=== PATIENT | female | born 1960 | race Caucasian/White ===

== ENCOUNTER → 2017-04-11 | Outpatient (CLI) | payer BC ==
--- NOTE | 2017-04-11 17:28 | CARD ---
APPROVED REPORT EXAM: Two-dimensional and M-mode echocardiogram with Doppler and color Doppler. Other Information Quality : Fair INDICATION Chest Pain 2D DIMENSIONS RVDd3.7 (2.9-3.5cm)Left Atrium(2D)4.1 (1.6-4.0cm) IVSd1.2 (0.7-1.1cm)Aortic Root(2D)2.5 (2.0-3.7cm) LVDd4.1 (3.9-5.9cm)LVOT Diameter2.0 (1.8-2.4cm) PWd1.0 (0.7-1.1cm)LVDs2.8 (2.5-4.0cm) FS (%) 31.4 %SV45.3 ml LVEF(%)60.0 (>50%) Aortic Valve AoV Peak Damon.139.3cm/sAoV VTI30.6cm AO Peak GR.7.8mmHgLVOT Peak Damon.118.6cm/s LVOT VTI 29.79cmAO Mean GR.5mmHg ERASTO (VMAX)2.13ed1ERN (VTI)3.11cm2 Mitral Valve MV E Yuqgvvjf66.9cm/sMV DECEL QAPT455gv MV A Teexdbcv21.2cm/sMV QED43ex E/A Ratio1.1MVA (PHT)3.16cm2 TDI E/Lateral E'6.6E/Medial E'13.1 Tricuspid Valve TR P. Pchhfzig614vt/sRAP GGBIHWLK4apQx TR Peak Gr.06uqTxHHKM38xiGl Pulmonary Vein S1 Cozfible94.0cm/sD2 Avwhebfe29.0cm/s LEFT VENTRICLE The left ventricle is normal size. There is normal left ventricular wall thickness. The left ventricu lar systolic function is normal and the ejection fraction is within normal range. The Ejection Fracti on is 60%. There is normal LV segmental wall motion. RIGHT VENTRICLE The right ventricle is normal size. The right ventricular systolic function is normal. ATRIA The left atrium is mildly dilated. The right atrium size is normal. The interatrial septum is intact with no evidence for an atrial septal defect or patent foramen ovale as noted on 2-D or Doppler imagi ng. AORTIC VALVE The aortic valve is normal in structure and function. Doppler and Color Flow revealed no significant aortic regurgitation. There is no significant aortic valvular stenosis. MITRAL VALVE The mitral valve is normal in structure There is no evidence of mitral valve prolapse. There is no mi tral valve stenosis. Doppler and Color-flow revealed trace mitral regurgitation. TRICUSPID VALVE The tricuspid valve is normal in structure Doppler and Color Flow revealed trace tricuspid regurgitat ion. There is mild pulmonary hypertension. The PA pressure was estimated at 33 mmHg. There is no tric uspid valve stenosis. PULMONIC VALVE The pulmonary valve is normal in structure Doppler and Color Flow revealed trace pulmonic valvular re gurgitation. There is no pulmonic valvular stenosis. GREAT VESSELS The aortic root is normal in size. The ascending aorta is normal in size. The IVC is normal in size a nd collapses >50% with inspiration. PERICARDIAL EFFUSION There is no evidence of significant pericardial effusion. Critical Notification Critical Value: No <Conclusion> The left ventricular systolic function is normal and the ejection fraction is within normal range. The Ejection Fraction is 60%. The left atrium is mildly dilated. The right atrium size is normal. The aortic valve is normal in structure and function. Doppler and Color-flow revealed trace mitral regurgitation. Doppler and Color Flow revealed trace tricuspid regurgitation. There is mild pulmonary hypertension. The PA pressure was estimated at 33 mmHg. Doppler and Color Flow revealed trace pulmonic valvular regurgitation. There is no evidence of significant pericardial effusion.
== END | disposition home or self-care (01) ==
LOC: ECHO 08:33
PROVIDERS: ATTEND Internal Medicine Cardiovascular Disease
DX: Z01.810 Encounter for preprocedural cardiovascular examination (principal); R07.89 Other chest pain
CPT/HCPCS: 93306

== ENCOUNTER → 2017-05-29 | Day surgery (SDC) | payer BC ==
[~2017-05-29] MED LIST: ATOR20TA58 PO; CHOL10003 PO; CLOP75TA PO; ESCITALOPRAM OX20 MG PO; HYDR12.58 PO; IV RINGERS,LACTATED 1000ML 1,000 ML IV SCH; LIDOCAINE 2% PF Vial for OR 5 ML VIAL. ONE; LOSA100T6 PO; METF500T4 PO; MONT10TA9 PO; PROAIR HFA8.5 GM INH; PROPOFOL 20 ML IV ONE; PROPOFOL 40 ML IV ONE; TIOT4MIS3 IH
--- NOTE | 2017-05-29 12:49 | PDOC1 ---
History and Physical Date of Admission Date of Admission DATE: 05/29/17 TIME: 12:40 Source Source: Chart review, Patient History of Present Illness History of Present Illness 56 y/o female with epigastric and chest pain. Chest pain radiates to interscapular area. No prior EGD. H/o early satiety, but no typical heartburn or dysphagia. Remote trial of PPI felt ineffective. No PUD, liver or pancreatic history. Prior sono in February revealed gallstones. Former smoker. No current meaningful alcohol use. Occasional loose stools w/o ongoing diarrhea or constipation. No overt bleeding, wt. loss, anorexia, nausea or vomiting. No prior colon cancer screening. Half-brother with CRC and grandmother with pancreatic cancer, otherwise negative GIFH. Past Medical History Cardiovascular: HTN Pulmonary: Asthma CENTRAL NERVOUS SYSTEM: CVA Psych: Depression Musculoskeletal: Osteoarthritis Endocrine: Diabetes Past Surgical History Past Surgical History: Tonsillectomy, Hysterectomy Family History Family History: Coronary Artery Disease, Diabetes, Hypertension, Other ( "bleeding disorder"/mother) Social History Smoke: Quit ALCOHOL: none Drugs: None Current Medications Current Medications Current Medications Ringer's Solution 1,000 ml @ 50 mls/hr Q20H IV Last administered on t 12:26; Start 05/29/17 at 11:16; Stop 05/29/17 at 23:15 Active Scripts Active Reported Proair Hfa Inhaler (Albuterol Sulfate) 8.5 Gm Hfa.aer.ad 2 Puff INH PRN Q6HRS PRN Vitamin D3 (Cholecalciferol (Vitamin D3)) 1,000 Unit Tablet 2,000 Unit PO DAILY Montelukast Sodium Tablet (Montelukast Sodium) 10 Mg Tablet 1 Tab PO HS Stiolto Respimat Inhal [place] (Tiotropium Br/Olodaterol HCl) 4 Gm Mist.inhal 4 Gm IH DAILY Hydrochlorothiazide Tablet (Hydrochlorothiazide) 12.5 Mg Tablet 25 Mg PO DAILY Losartan Potassium 100 Mg Tablet 100 Mg PO HS Atorvastatin Calcium 20 Mg Tablet 1 Tab PO DAILY Metformin Hcl 500 Mg Tablet 1,000 Mg PO DAILY Escitalopram Oxalate 20 Mg Tablet 1 Tab PO DAILY Clopidogrel (Clopidogrel Bisulfate) 75 Mg Tablet 1 Tab PO DAILY Allergies Allergies: Coded Allergies: acetaminophen (Verified Allergy, Intermediate, 05/29/17) albuterol (Verified Allergy, Intermediate, 05/29/17) aspirin (Verified Allergy, Intermediate, 05/29/17) cephalexin (Verified Allergy, Intermediate, 05/29/17) iodine (Verified Allergy, Intermediate, 05/29/17) ipratropium (Verified Allergy, Intermediate, 05/29/17) meperidine (Verified Allergy, Intermediate, 05/29/17) morphine (Verified Allergy, Intermediate, 05/29/17) pepper (Verified Allergy, Intermediate, 05/29/17) phenytoin (Verified Allergy, Intermediate, 05/29/17) propoxyphene (Verified Allergy, Intermediate, 05/29/17) milk (Verified Adverse Reaction, Unknown, INTOELRANT, 05/29/17) ROS Review of System Otherwise negative. Physical Exam General: Alert, Oriented X3, Cooperative, No acute distress Lungs: Clear to auscultation Heart: S1S2, RRR, no gallops, no murmurs Abdomen: Normal bowel sounds, Soft, No tenderness, No hepatosplenomegaly, No masses Rectal Exam: deferred (to procedure) Extremities: No cyanosis, No edema Skin: No significant lesion Neuro: Normal speech, Strength at 5/5 X4 ext, Normal tone, Sensation intact, Cranial nerves 3-12 NL, Reflexes 2+ Psych/Mental Status: Mental status NL, Mood NL Vitals Vitals Vital Signs Date Time Temp Pulse Resp B/P (MAP) Pulse Ox O2 Delivery O2 Flow Rate FiO2 05/29/17 12:15 97.5 77 18 92 97.5 VTE Prophylaxis Ordered VTE Prophylaxis Devices: No VTE Pharmacological Prophylaxi: No Assessment/Plan Assessment/Plan IMP: Chest pain/dyspepsia Screen for colon cancer REC: EGD/colonoscopy. NAHED JIMENEZ MD May 29, 2017 12:49
--- NOTE | 2017-05-29 13:45 | PDOC4 ---
PROCEDURE Procedure Colonoscopy/EGD Indications: Screen/chest pain/dyspepsia Meds: per anesthesia Findings: BARBARA: Normal "Scope to TI. Mucosa normal. Scattered diverticula, sigmoid. 2x6mm polyp, hepatic flexure, biopsied off. Small internal hemorrhoids on retroflex. E--Less than grade I esophagitis at 39cm. G--Striped erythema with scattered tiny erosions, prepyloric area. Bx's re: gastritis/H.pylori. D--Normal to second portion. Scarlet. well. IMP: small polyp. Diverticulosis. Small hemorrhoids. Endoscopically mild reflux esophagitis Gastric erosions/erythema REC: Await histology. Continue same meds. Resume diet. Will discuss trial of PPI at f/u visit in 2 weeks. Repeat colonoscopy in 5 years unless otherwise dictated by histology. Thanks. NAHED JIMENEZ MD May 29, 2017 13:45
[2017-05-29 13:54] VITALS: BP 184/67
--- NOTE | 2017-05-30 14:22 | PATHOLOGY ---
PATHOLOGY REPORT * * * * * * * * FINAL DIAGNOSIS: A. Gastric biopsy, antrum: - Chronic gastritis, mild. B. Colon biopsy, hepatic flexure polyp: - Tubular adenoma. COMMENT: Sections of the gastric antral biopsy show congestion and mild chronic inflammation. A lymphoid follicle is present within the inflammatory cell infiltrate. An immunoperoxidase stain for Helicobacter is obtained. No Helicobacter organisms are identified. There is no evidence of malignancy. Sections of the hepatic flexure colon biopsy reveal a tubular adenoma. There is no high-grade dysplasia or evidence of malignancy. (JPM:pit; 05/30/2017) Special stain: Immunoperoxidase for Helicobacter REPORT ELECTRONICALLY SIGNED BY: Rasheed Donaldson M.D. DATE/TIME: 05/30/2017 14:22 * * * * * * * * GROSS PATHOLOGY: A. Received in formalin labeled "Jamil Zeng, antral BX," is a segment of piña soft tissue measuring 0.5 cm in maximum dimension. The specimen is submitted entirely in cassette A1. B. Received in formalin labeled "Jamil Zeng, hepatic flexure polyp," are 4 segments of piña soft tissue measuring 1.5 x 0.5 x 0.2 cm in aggregate dimensions and ranging from 0.3 to 0.5 cm in maximum dimension. The specimen is submitted entirely in cassette B1. (TSD; 05/29/2017) INITIAL CPT CODE(S): A; 11961, 58903 B; 43893 Professional services [place] [address] Technical services performed by [facility] at [address] [place] [address], [facility] [address], [place] [address]. SPECIMEN(S) RECEIVED: A.Antral biopsy B.Hepatic flexure polyp CLINICAL HISTORY: Abdominal pain PATIENT: JAMIL ZENG /AGE: 1207/07/1960 (Age: 56) PATIENT #: [id number] ALT CASE #: SPECIMEN COLLECTION DATE: 05/29/2017 SPECIMEN RECEIVED DATE: 05/29/2017 [facility] - [address] [place] [address] - PHONE: [phone] * * * END OF REPORT * * *
== END | disposition home or self-care (01) ==
LOC: ENDOS 11:44
PROVIDERS: ATTEND Internal Medicine Gastroenterology
DX: Z12.11 Encounter for screening for malignant neoplasm of colon (principal); K64.8 Other hemorrhoids; D12.3 Benign neoplasm of transverse colon; K57.30 Diverticulosis of large intestine without perforation or abscess without bleeding; K21.0 Gastro-esophageal reflux disease with esophagitis; K31.89 Other diseases of stomach and duodenum; E78.00 Pure hypercholesterolemia, unspecified; E11.9 Type 2 diabetes mellitus without complications; F32.9 Major depressive disorder, single episode, unspecified; M19.91 Primary osteoarthritis, unspecified site; Z80.0 Family history of malignant neoplasm of digestive organs; Z98.890 Other specified postprocedural states; Z86.69 Personal history of other diseases of the nervous system and sense organs; Z90.710 Acquired absence of both cervix and uterus; Z88.8 Allergy status to other drugs, medicaments and biological substances; Z88.6 Allergy status to analgesic agent; Z91.011 Allergy to milk products
CPT/HCPCS: 43239; 45380; 88305; 88342; J2704; J2001

== ENCOUNTER 2017-06-30 08:33 | Day surgery (SDC) | payer BC ==
[~2017-06-30] VITALS: Ht 170.2 cm; Wt 134.7 kg
[~2017-06-30 08:33] MED LIST changes: +BUPIVAC MPF-EPI 0.5%-1:200000 30 ML VIAL. ONE; +GLUCAGON,HUMAN RECOMBINANT 1 MG/ML VIAL. ONE; +IOHEXOL 300 MG/ML 100ML VIAL. ONE; +LIDOCAINE 1% PF 2 ML VIAL. ID PRN; +PROCHLORPERAZINE 10 MG/2 ML VIAL. IV PRN; -PROPOFOL 40 ML IV ONE; +ROCURONIUM 50 MG/5 ML VIAL. ONE; +SURGICEL HEMOSTAT 4X8 EACH. ONE; +fentaNYL PF VIAL 100 MCG/2 ML VIAL ONE
[2017-06-30 09:22] LABS: BASO # 0.1 x10^3/uL (0.0-0.2); BASO % 1 % (0-3); EOS % 3 % (0-3); HEMATOCRIT 39.8 % (36.0-47.0); HEMOGLOBIN 12.9 g/dL (12.0-15.5); LYMPH # 2.1 x10^3/uL (1.0-4.8); LYMPH % 17 % (24-48); MEAN CORPUSCULAR HEMOGLOBIN 26 pg (25-35); MEAN CORPUSCULAR HGB CONC 33 g/dL (31-37); MEAN CORPUSCULAR VOLUME 80 fL (79-100); MONO % 7 % (0-9); NEUT % 73 % (31-73); PLATELET COUNT 388 x10^3/uL (140-400); RED BLOOD COUNT 4.96 x10^6/uL (3.50-5.40); RED CELL DISTRIBUTION WIDTH 13.8 % (11.5-14.5); WHITE BLOOD COUNT 12.9 x10^3/uL (4.0-11.0)
[2017-06-30 09:34] LABS: INR 1.1 (0.8-1.1); PROTHROMBIN TIME PATIENT 13.8 SEC (11.7-14.0)
[2017-06-30 09:40] LABS: CALCIUM 8.6 mg/dL (8.5-10.1); CREATININE 1.2 mg/dL (0.6-1.0); GFR 46.5; POTASSIUM 3.7 mmol/L (3.5-5.1)
[2017-06-30 09:46] LABS: ALBUMIN 3.8 g/dL (3.4-5.0); TOTAL BILIRUBIN 0.3 mg/dL (0.2-1.0)
[2017-06-30] MEDS ORDERED: DEXAMETHASONE SOD PHOS 20 MG/5 ML VIAL. ONE (11:17)
[2017-06-30] MEDS ORDERED: DESFLURANE 31 TO 60 MINUTES IH ONE (11:17)
[2017-06-30] MEDS ORDERED: NEOSTIGMINE 10 MG/10 ML VIAL. ONE (11:20)
[2017-06-30] MEDS ORDERED: ONDANSETRON PF 4 MG/2 ML VIAL. ONE (11:20)
[2017-06-30] MEDS ORDERED: GLYCOPYRROLATE 1 MG/5 ML VIAL. ONE (11:21)
[2017-06-30] MEDS ORDERED: diphenhydrAMINE 50 MG/ML VIAL ONE (11:25)
[2017-06-30] MEDS ORDERED: PHENYLEPHRINE in 0.9% NACL PF 1 MG/10 ML SYRINGE. IV ONE (11:30)
--- NOTE | 2017-06-30 11:54 | RAD ---
Indication: Cholecystectomy. Fluoroscopy was provided for intraoperative cholangiogram. 0.17 minutes of fluoroscopy time was utilized. 3 images were obtained demonstrating contrast being injected via the cystic duct remnant. Contrast within the intrahepatic and extrahepatic bile ducts is noted. No filling defects are seen to suggest retained stone. There is contrast passing into the duodenum. Impression: No evidence of retained common duct stone.
--- NOTE | 2017-06-30 12:26 | OP ---
DATE OF SURGERY: 06/30/2017 PREOPERATIVE DIAGNOSIS: Symptomatic cholelithiasis. POSTOPERATIVE DIAGNOSIS: Symptomatic cholelithiasis. PROCEDURE: Laparoscopic cholecystectomy with cholangiogram. SURGEON: Ronny Henley MD AUTOMATIC FANCY MACHINE OPERATOR: PING Richardson ANESTHESIA: General endotracheal. ESTIMATED BLOOD LOSS: 10 mL. IV FLUID: 1 liter. INDICATIONS: The patient is an obese 56-year-old female with postprandial pain and an ultrasound showing cholelithiasis. She is brought for cholecystectomy. OPERATIVE FINDINGS: The liver was generous, smooth and sharp. Gallbladder was supple with some adhesions of omentum and duodenum at the inferior aspect. Visual inspection of the remainder of the abdomen failed to reveal obvious abnormalities. DESCRIPTION OF PROCEDURE: The patient was brought to the operating suite, given a general endotracheal anesthetic and the abdomen prepped and draped in usual sterile fashion. A supraumbilical incision was infiltrated with local anesthetic, incised and a 5 mm Visiport passed safely into the abdominal cavity under direct vision, taking care to avoid injury to abdominal contents. Pneumoperitoneum was established. Camera inserted. Inspection carried out with results as noted above. With the table in reverse Trendelenburg rolled to the left, the epigastric, midclavicular, and lateral ports were placed under direct vision. The gallbladder was retracted superolaterally and the cystic duct and cystic artery were exposed. The duct was clipped on the gallbladder side. After IV Benadryl, cholangiograms were made. These were normal. In light of this, the catheter was removed. The cystic duct was clipped x 3 and divided, taking care to avoid injury or compromise of the common duct. An anterior and posterior branch of the cystic artery were clipped and divided and the gallbladder freed from the bed with cautery dissection. Part way up the fossa, a posterior vessel was encountered, clipped and divided. The gallbladder was freed and placed in an EndoCatch bag. Good hemostasis was obtained in the fossa with cautery and a small piece of Surgicel. Table returned to level. Gallbladder delivered through the epigastric incision. Epigastric incision closed with interrupted 0 Vicryl suture. With the intraabdominal pressure at 6 cm of water, no bleeding from the epigastric closure or from the midclavicular or lateral port sites after their removal. Abdomen decompressed, camera slowly removed, no bleeding seen. Skin incision was closed with subcuticular 4-0 Monocryl. Steri-Strips and sterile dressings applied. The patient was awakened from her anesthetic and taken to the recovery room in satisfactory condition. RONNY HENLEY MD DR: CATE/yann JOB#: [id number] / [id number]
[2017-06-30] MEDS ORDERED: ONDANSETRON PF 4 MG/2 ML VIAL. IV PRN (13:00)
[2017-06-30] MEDS ORDERED: fentaNYL PF VIAL 100 MCG/2 ML VIAL IV PRN (13:00)
[2017-06-30] MEDS: fentaNYL PF VIAL 100 MCG/2 ML VIAL IV PRN ×4 (13:07→15:05)
--- NOTE | 2017-06-30 13:08 | PDOC ---
BRIEF OPERATIVE NOTE Date: Jun 30, 2017 Pre-Op Diagnosis sx cholelithiasis Post-Op Diagnosis same Procedure Performed l/s cholecystectomy with cholangiograms Surgeon Myke [employer] Gaby MCGREGOR Anesthesia Type: General Blood Loss 10cc IV Fluid 1000cc Specimens Obtained GB Findings supple GB, normal grams Complications none Operative Note Wk # [id number] RIRI HENLEY MD Jun 30, 2017 13:08
--- NOTE | 2017-06-30 13:09 | DISCH ---
DISCHARGE INSTRUCTIONS Condition on Discharge Condition on Discharge: Stable Activity After Discharge Activity Instructions for Disc: Resume previous activity, Activity as tolerated Lifting Instructions after Dis: No heavy lifting Driving Instructions after Dis: Do not drive (3-4 days) Diet after Discharge Diet after Discharge: Diabetic No Calorie Level Wound Incision Care Wound/Incision Care: Ice to area for comfort Other wound/incision instructi: brian shower Monday Follow-Up Follow up with: Myke next week RIRI HENLEY MD Jun 30, 2017 13:09
[2017-06-30] MEDS ORDERED: oxyCODONE/APAP 10/325 1 TAB TABLET PO PRN (13:15)
[2017-06-30] MEDS ORDERED: OXYC-328 PO (13:33)
[2017-06-30] MEDS ORDERED: DOCU50CA9 PO (13:35)
[2017-06-30 14:35] VITALS: BP 164/70
--- NOTE | 2017-07-04 13:41 | PATHOLOGY ---
PATHOLOGY REPORT * * * * * * * * FINAL DIAGNOSIS: Gallbladder, laparoscopic cholecystectomy: - Cholelithiasis. - Cholesterolosis, focal. - Chronic cholecystitis. (JPM:clarence; 07/04/2017) COMMENT: There is no evidence of malignancy. REPORT ELECTRONICALLY SIGNED BY: Rasheed Donaldson M.D. DATE/TIME: 07/04/2017 13:38 * * * * * * * * GROSS PATHOLOGY: Received in formalin labeled "Jamil Zeng, gallbladder sac with contents," is an 8.5 x 4.3 x 2.5 cm, intact gallbladder with light piña to blue, vascular serosal surfaces. Opening the gallbladder reveals light piña, velvety mucosa, slightly rippled with yellow highlights, and an average wall thickness of 0.1 cm. Calculi are present, measuring 1.6 cm maximum dimension, possessing a dark piña color, and feeling firm to the touch. No masses are noted grossly. Medical Lead sections from the body and fundus are submitted along with the proximal margin in cassette A1. (TSD; 06/30/2017) INITIAL CPT CODE(S): A; 72848 Professional services performed [place] [facility] [address] Technical services performed by [facility] at [address] [place] [address], [facility] [address], [place] [address]. SPECIMEN(S) RECEIVED: A.Gallbladder and its contents CLINICAL HISTORY: Symptomatic cholelithiasis PATIENT: JAMIL ZENG /AGE: 1207/07/1960 (Age: 56) PATIENT #: [id number] ALT CASE #: SPECIMEN COLLECTION DATE: 06/30/2017 SPECIMEN RECEIVED DATE: 06/30/2017 [facility] - [address] [place] [address] - PHONE: [phone] * * * END OF REPORT * * *
== END 2017-06-30 15:42 | disposition home or self-care (01) ==
LOC: SURG 08:33
PROVIDERS: ATTEND Surgery
DX: K80.10 Calculus of gallbladder with chronic cholecystitis without obstruction (principal); K82.4 Cholesterolosis of gallbladder; E78.00 Pure hypercholesterolemia, unspecified; I10 Essential (primary) hypertension; J44.9 Chronic obstructive pulmonary disease, unspecified; E66.9 Obesity, unspecified; Z68.42 Body mass index [BMI] 45.0-49.9, adult; F32.9 Major depressive disorder, single episode, unspecified; Z86.73 Personal history of transient ischemic attack (TIA), and cerebral infarction without residual deficits; Z98.890 Other specified postprocedural states; Z86.69 Personal history of other diseases of the nervous system and sense organs; Z86.39 Personal history of other endocrine, nutritional and metabolic disease; Z72.89 Other problems related to lifestyle; Z88.0 Allergy status to penicillin; Z88.8 Allergy status to other drugs, medicaments and biological substances; Z88.6 Allergy status to analgesic agent; Z91.041 Radiographic dye allergy status; Z91.040 Latex allergy status; Z91.011 Allergy to milk products; Z79.01 Long term (current) use of anticoagulants
CPT/HCPCS: 36415; 47563; 74300; 80048; 82040; 82247; 82962; 85025; 85610; 85730; J1100; J1200; J1956; J2370; J2405; J2704; J2710; J3010; J3490; Q9967; C1769; J1610; J7030; J7120; J2001

== ENCOUNTER → 2018-04-20 | Outpatient (CLI) | payer BC ==
[~2018-04-20] MED LIST changes: -BUPIVAC MPF-EPI 0.5%-1:200000 30 ML VIAL. ONE; +DOCU50CA9 PO; -GLUCAGON,HUMAN RECOMBINANT 1 MG/ML VIAL. ONE; -IOHEXOL 300 MG/ML 100ML VIAL. ONE; -IV RINGERS,LACTATED 1000ML 1,000 ML IV SCH; -LIDOCAINE 1% PF 2 ML VIAL. ID PRN; -LIDOCAINE 2% PF Vial for OR 5 ML VIAL. ONE; -LOSA100T6 PO; +LOSA100T7 PO; +METF500T16 PO; -METF500T4 PO; +OXYC-328 PO; -PROCHLORPERAZINE 10 MG/2 ML VIAL. IV PRN; -PROPOFOL 20 ML IV ONE; -ROCURONIUM 50 MG/5 ML VIAL. ONE; -SURGICEL HEMOSTAT 4X8 EACH. ONE; -fentaNYL PF VIAL 100 MCG/2 ML VIAL ONE
--- NOTE | 2018-04-21 13:11 | CARD ---
MR#: [id number] Date of Study: 04/20/2018 Ordering Physician: YANG OGLESBY, Referring Physician: YANG OGLESBY, Tech: Sir Ho APPROVED REPORT EXAM: Two-dimensional and M-mode echocardiogram with Doppler and color Doppler. Other Information Quality : AverageHR: 73bpm INDICATION Dyspnea Chest Pain RISK FACTORS Hypertension Hyperlipidemia Diabetes Smoking 2D DIMENSIONS RVDd3.1 (2.9-3.5cm)Left Atrium(2D)3.4 (1.6-4.0cm) IVSd0.9 (0.7-1.1cm)Aortic Root(2D)2.7 (2.0-3.7cm) LVDd4.7 (3.9-5.9cm)LVOT Diameter2.1 (1.8-2.4cm) PWd1.3 (0.7-1.1cm)LVDs2.8 (2.5-4.0cm) FS (%) 40.7 %SV71.6 ml LVEF(%)65.0 (>50%) Aortic Valve AoV Peak Damon.168.3cm/sAoV VTI33.1cm AO Peak GR.11.3mmHgLVOT Peak Damon.127.1cm/s LVOT VTI 32.91cmAO Mean GR.6mmHg ERASTO (VMAX)1.13ib0ELS (VTI)3.53cm2 Mitral Valve MV E Azrrkpnj20.7cm/sMV DECEL RFOF890og MV A Htllewci30.5cm/sMV PTH85rg E/A Ratio1.0MVA (PHT)3.17cm2 TDI E/Lateral E'6.1E/Medial E'7.4 Pulmonary Valve PV Peak Sobbnguf981.5cm/sPV Peak Grad.5mmHg Tricuspid Valve TR P. Eomjpyjj525jk/sRAP JNEBZILG5ypMa TR Peak Gr.07fvDgHHIW57yfSs Pulmonary Vein S1 Tkmbemou64.2cm/sD2 Pneqtetn18.0cm/s PVa gcvhevvj087wnjf LEFT VENTRICLE The left ventricle is normal size. There is normal left ventricular wall thickness. The left ventricu lar systolic function is normal and the ejection fraction is within normal range. The Ejection Fracti on is 65%. There is normal LV segmental wall motion. Transmitral Doppler flow pattern is normal for a ge. RIGHT VENTRICLE The right ventricle is normal size. There is normal right ventricular wall thickness. The right ventr icular systolic function is normal. ATRIA The left atrium size is normal. The right atrium size is normal. The interatrial septum is intact wit h no evidence for an atrial septal defect or patent foramen ovale as noted on 2-D or Doppler imaging. AORTIC VALVE The aortic valve is thickened but opens well. Doppler and Color Flow revealed trace aortic regurgitat ion. Calculated aortic valve area is 2.6 cm2 with maximum pressure gradient of 11 mmHg and mean press ure gradient of 6 mmHg. MITRAL VALVE The mitral valve is thickened but opens well. There is no mitral valve stenosis. Doppler and Color-fl ow revealed trace mitral regurgitation. TRICUSPID VALVE The tricuspid valve is normal in structure Doppler and Color Flow revealed mild tricuspid regurgitati on. PULMONIC VALVE The pulmonic valve is not well visualized. Doppler and Color Flow revealed no pulmonic valvular regur gitation. GREAT VESSELS The aortic root is normal in size. Normal pulmonary venous flow (Doppler). The IVC is normal in size and collapses >50% with inspiration. PERICARDIAL EFFUSION There is no evidence of significant pericardial effusion. Critical Notification Critical Value: No <Conclusion> The left ventricular systolic function is normal and the ejection fraction is within normal range. T he Ejection Fraction is 65%. The left atrium size is normal. The right atrium size is normal. The aortic valve is thickened but opens well. Doppler and Color Flow revealed trace aortic regurgitation. Doppler and Color-flow revealed trace mitral regurgitation. Doppler and Color Flow revealed mild tricuspid regurgitation. The pulmonic valve is not well visualized. There is no evidence of significant pericardial effusion. Signed by : Yang Oglesby MD Electronically Approved : 04/21/2018 13:10:29
== END | disposition home or self-care (01) ==
LOC: ECHO 11:31
PROVIDERS: ATTEND Internal Medicine Cardiovascular Disease
DX: I07.1 Rheumatic tricuspid insufficiency (principal)
CPT/HCPCS: 93306